=== PATIENT | female | born 1970 | race Caucasian/White ===

== ENCOUNTER 2021-05-02 11:38 | Outpatient (CLI) | payer OTHER, SELFPAY ==
[2021-05-02 12:27] LABS: Anion Gap 5 mmol/L (8-16); Blood Urea Nitrogen 11 mg/dL (7-17); Carbon Dioxide 27 mmol/L (22-30); Chloride 101 mmol/L (98-107); Estimated Glomerular Filt Rate > 60; Glucose 265 mg/dL (65-110); Potassium 4.2 mmol/L (3.4-5.0); Sodium 133 mmol/L (137-145)
== END 2021-05-02 11:39 | disposition home or self-care (01) ==
LOC: ANHLAB 11:40
PROVIDERS: PCP Family Medicine; Visit Provider Anesthesiology
DX: E11.9 Type 2 diabetes mellitus without complications (principal); Z01.818 Encounter for other preprocedural examination
CPT/HCPCS: 36415; 80048

== ENCOUNTER 2021-05-05 02:47 | Day surgery (SDC) | payer OTHER, SELFPAY ==
[2021-04-24 17:48] VITALS: BMI 30.9
--- NOTE | 2021-04-24 17:55 | SUR.PREOP ---
Report to the Outpatient Waiting Room, entrance under the green pavilion located off [facility], at time _1000 on date _05/05/21 . OR Time: _1200 . - You will be asked a series of questions to screen for COVID 19 for your protection. - A mask is required within the hospital. - No visitors are allowed at this time. Preoperative COVID Testing Requirements: No COVID Test needed if: (proof is required; if not received patient will have Rapid Test prior to entry) - Patient has received COVID Vaccine at least 14 days prior to procedure date or - Patient has positive COVID test result within last 90 days of surgery date. COVID Test needed if above criteria is not met If not COVID vaccinated a COVID test must be conducted within 72 hours of surgery and patient is asked to isolate self from time of testing until procedure. You will go to the [facility] for your COVID testing. The [facility] Testing site is located at the corner of [address] [facility]. You will only be called if COVID results are positive and your surgeon may reschedule your elective surgery date. Patients may have clear liquids (water, carbonated beverages, clear teas, apple juice) until 3 hours prior to surgery with a maximum of 20 ounces. - No food from midnight until time of surgery - Infants may have breast milk until 4 hours before surgery, infant formula 6 hours prior to surgery. - Children will be allowed to drink immediately following surgery. If applicable, please bring a bottle or sippy cup to assist with drinking. Juice, water, soda, and popsicles are readily available. For infants on formula, please bring formula the day of surgery. Pacifiers are allowed. Take the following medications with a SIP of water the morning of surgery: ____n/a Medications to discontinue per physician __vitamin Date to take last dose__05/02/21 Please no make-up, nail bengali, hairspray, perfume, deodorant, or body powder the day of surgery. No jewelry (including any body piercings) or valuables the day of surgery, leave them at home. Please take a shower or bath the night before, or the morning of, surgery with an antibacterial soap. Wear comfortable, loose fitting clothing. Children are encouraged to wear pajamas. - Jewelry must be removed prior to entering the operating room. Rings and piercings that are not removed may be cut off. - The hospital will not accept responsibility for valuables. - Please leave all valuables, including medications, at home the day of surgery. If you are going home after surgery, a licensed spike driver must drive you home. - NO public transportation without another adult. - We recommend that an adult stay with you for 24 hours following discharge. - We also recommend that you do not drive, make important decision, drink alcoholic beverages, or take any drugs that were not prescribed by your health care provider for at least 24 hours after your discharge time. For Pediatric surgeries, we recommend two adults accompany the child home (only one inside the building at this time). Follow any additional instructions given to you from your surgeon. Telephone instructions given to __eulogio colón and asked if any additional questions and then verbalized understanding. Patient advised to call surgeon office or pre surgery nurse liaison [phone] if any additional questions.
--- NOTE | 2021-05-05 08:19 | PM.IMHP ---
H&P: HPI History of Present Illness Date/Time: 05/05/21 08:19 She has painful lesion inside vagina she has opted to have removed Chief Complaint: vaginal lesion, dyspareunia Review of Systems Review of Systems: All systems reviewed & are unremarkable except as noted in HPI and below PMFSH Past Medical History Medical History Anxiety Chronic GERD Diabetes mellitus Fibromyalgia IBS (irritable bowel syndrome) Lupus Migraine Vaginal delivery x1 Surgical History Surgical History H/O exploratory laparotomy 07/2009 History of ankle surgery 01/2011 History of bilateral salpingo-oophorectomy 07/2009 History of hysterectomy 07/2009 Family History Family History Father Diabetes mellitus Mother Uterine cancer Anxiety and depression Daughter Anxiety and depression Grandparent Heart disease Thyroid disorder Social History Social History Smoking status: Never smoker Alcohol intake: never Alcohol use details: 1 drink a month Substance use: current Substance use type: marijuana Other substance usage details: once a week,eatables Living arrangements: with family Spiritual care concerns: No Agree to blood products: Yes Meds Home Medications and Allergies Home Medications Medication Instructions Recorded Confirmed Type albuterol 90 mcg/actuation aerosol 90 mcg INHALATION PRN 04/01/21 04/24/21 History inhaler amitriptyline 25 mg tablet 25 mg PO HS tablet 04/01/21 04/24/21 History cholecalciferol (vitamin D3) 50 50 mcg PO DAILY 04/01/21 04/24/21 History mcg (2,000 unit) capsule citalopram 40 mg tablet 40 mg PO HS 04/01/21 04/24/21 History dicyclomine 10 mg capsule 10 mg PO PRN 04/01/21 04/24/21 History diphenoxylate-atropine 2.5 1 tablet PO PRN PRN 04/01/21 04/24/21 History mg-0.025 mg tablet hydrocodone 5 mg-acetaminophen 325 1 tablet PO PRN PRN 04/01/21 04/24/21 History mg tablet hydroxychloroquine 200 mg tablet 200 mg PO BID 04/01/21 04/24/21 History insulin glargine U-300 conc 300 See Rx Instructions .ROUTE 04/01/21 04/24/21 History unit/mL (3 mL) subcutaneous pen .COMPLEX ml insulin lispro 100 unit/mL 1 sliding scale dose SUBCUT .with 04/01/21 04/24/21 History subcutaneous pen meals ml pantoprazole 40 mg tablet,delayed 40 mg PO BID tablet 04/01/21 04/24/21 History release semaglutide 0.25 mg SUBCUT WEEKLY 04/01/21 04/24/21 History tramadol 50 mg tablet 50 mg PO PRN PRN 04/01/21 04/24/21 History Allergies Allergy/AdvReac Type Severity Reaction Status Date / Time codeine Allergy Mild Gastrointestinal Verified 04/24/21 17:19 Upset, pain, nausea Penicillins Allergy Mild Gastrointestinal Verified 04/24/21 17:19 Upset, pain, nausea Exam Const: General: healthy appearing, no acute distress, alert and awake Resp: Auscultation: clear to auscultation bilaterally Cardio: Rate: regular rate Rhythm: regular rhythm GI: Inspection: non-distended GI Palp: Yes Soft to palpation and No Tenderness to palpation present (GI) : Speculum Exam - Vagina: lesion (1 cm smooth pink lesion, tender, friable) Bimanual exam- vagina & uterus: normal bimanual exam Bimanual Exam- Adnexa, other: normal adnexae, no masses and No adnexal tenderness Extrem: General: no pedal edema and no calf tenderness Psych: Mental Status: mental status grossly normal Assessment and Plan Assessment and plan (1) Vaginal lesion: Code(s): N89.8 - Other specified noninflammatory disorders of vagina Status: Acute Assessment and Plan: She opted and signed consent for removal of vaginal lesion after risks, benefits, complications, and alternatives discussed. She expressed understanding and
[2021-05-05 10:19] VITALS: BP 132/80; PULSE 99; RESP 18; TEMP 36.3; O2SAT 99
[2021-05-05] MEDS: LACTATED RINGERS 1,000 ML 30 ML IV CONT (10:40)
[2021-05-05 10:48] LABS: Glucose Point of Care 295 mg/dl (65-105)
--- NOTE | 2021-05-05 11:03 | WPDANESEPPF ---
Anes - Initial Pre Proc Eval Procedure: Operation Date: 05/05/21 12:00 Proposed Procedures p Removal of Vaginal Lesion - Samantha Kirkland MD Date/Time: 05/05/21 11:03 Surgeon: Samantha Kirkland MD Pre Op Diagnosis: Vag Lesion, Dyspareunia Patient Data Age: 51 Gender: F Height: 1.7 m Weight: 91.6 kg Last Vital Signs Temp 97.4 F L 05/05/21 10:19 Pulse 99 05/05/21 10:19 Resp 18 05/05/21 10:19 BP 132/80 05/05/21 10:19 Pulse Ox 99 05/05/21 10:19 Allergies Allergy/AdvReac Type Severity Reaction Status Date / Time codeine Allergy Mild Gastrointestinal Verified 05/05/21 10:23 Upset, pain, nausea Penicillins Allergy Mild Gastrointestinal Verified 05/05/21 10:23 Upset, pain, nausea Home Medications Medication Instructions Recorded Confirmed Type albuterol 90 mcg/actuation aerosol 90 mcg INHALATION PRN 04/01/21 05/05/21 History inhaler amitriptyline 25 mg tablet 25 mg PO HS tablet 04/01/21 05/05/21 History cholecalciferol (vitamin D3) 50 50 mcg PO DAILY 04/01/21 05/05/21 History mcg (2,000 unit) capsule citalopram 40 mg tablet 40 mg PO HS 04/01/21 05/05/21 History dicyclomine 10 mg capsule 10 mg PO PRN 04/01/21 05/05/21 History diphenoxylate-atropine 2.5 1 tablet PO PRN PRN 04/01/21 05/05/21 History mg-0.025 mg tablet hydrocodone 5 mg-acetaminophen 325 1 tablet PO PRN PRN 04/01/21 05/05/21 History mg tablet hydroxychloroquine 200 mg tablet 200 mg PO BID 04/01/21 05/05/21 History insulin glargine U-300 conc 300 See Rx Instructions .ROUTE 04/01/21 05/05/21 History unit/mL (3 mL) subcutaneous pen .COMPLEX ml insulin lispro 100 unit/mL 1 sliding scale dose SUBCUT .with 04/01/21 05/05/21 History subcutaneous pen meals ml pantoprazole 40 mg tablet,delayed 40 mg PO BID tablet 04/01/21 05/05/21 History release semaglutide 0.25 mg SUBCUT WEEKLY 04/01/21 05/05/21 History tramadol 50 mg tablet 50 mg PO PRN PRN 04/01/21 05/05/21 History Laboratory Tests 05/05/21 10:43 POC Capillary Glucose 295 mg/dl H mg/dl (65-105) Patient hx anesthesia problems: none Family hx anesthesia problems: none Results Review: All pre-operative results and documents have been reviewed as part of the pre-operative evaluation. [facility] Past Medical History Medical History Anxiety Chronic GERD Diabetes mellitus Fibromyalgia IBS (irritable bowel syndrome) Lupus Migraine Vaginal delivery x1 Surgical History Surgical History H/O exploratory laparotomy 07/2009 History of ankle surgery 01/2011 History of bilateral salpingo-oophorectomy 07/2009 History of hysterectomy 07/2009 Family History Family History Father Diabetes mellitus Mother Uterine cancer Anxiety and depression Daughter Anxiety and depression Grandparent Heart disease Thyroid disorder Social History Social History Smoking status: Never smoker Alcohol intake: never Alcohol use details: 1 drink a month Substance use: current Substance use type: marijuana Other substance usage details: once a week,eatables Living arrangements: with family Spiritual care concerns: No Agree to blood products: Yes Anes - Eval Final PreProcedure Day of Procedure 05/05/21 11:03 Patient weight: obese Heart: regular rate and rhythm Lungs: clear to auscultation Airway: Mallampati scale class II Neurological: alert and oriented Last oral intake: >/= 8 hours ASA classification: III Emergent: no Anesthetic plan: proceed Anesthesia type and monitoring: general GIVS and standard monitoring Results Review: All pre-operative results and documents have been reviewed as part of the pre-operative evaluation. Informed Consent: T
--- NOTE | 2021-05-05 11:47 | WPDHPUPDATE1 ---
History and Physical Update Update Date/Time: 05/05/21 11:47 History and Physical has been reviewed, including an updated exam of the patient. There are NO changes in the patient's condition. Risks, benefits, and alternatives have been discussed and questions answered. Patient agrees to proceed with procedure.
--- NOTE | 2021-05-05 12:29 | SUR.OPER ---
no lesion visualized, no local injected
[2021-05-05 12:32] VITALS: BP 113/69; PULSE 85; RESP 16; O2SAT 98
--- NOTE | 2021-05-05 12:33 | W.PM.PROC2 ---
Procedure Note - Detailed Date of Procedure 05/05/21 Pre-op Diagnosis Vag Lesion, Dyspareunia Post-op Diagnosis other (Dyspareunia) Procedure Performed exam under anesthesia Surgeon Samantha Kirkland MD Anesthesia MAC Indications Vaginal lesion seen on exam in office, dyspareunia Findings normal vagina with no lesion visible or palpable Description of Procedure The patient was taken to the operating room where she was sedated and placed in the dorsal lithotomy position. A speculum was placed in the patient's vagina. No lesion was visible on any part of the vagina or cervix. She does have remnants of the hymenal ring visible, which is a normal finding. The lesion that was visible and palpable in the office was not visualized or palpated today. After a very thorough vaginal inspection and digital exam and no lesion found, decision was made not to proceed with any further surgery since no lesion was seen to be removed. She tolerated the procedure well. Sponge, lap, and instrument counts were correct x2. She was taken to the recovery room in stable condition. Estimated Blood Loss 0 Drains No Packing No Pathology none sent Complications No immediate complications Condition stable Disposition PACU
[2021-05-05 12:59] LABS: Glucose Point of Care 221 mg/dl (65-105)
[2021-05-05 13:00] VITALS: BP 105/78; PULSE 85; RESP 16
[2021-05-05 13:20] VITALS: BP 118/74; PULSE 84; RESP 16
== END 2021-05-05 13:38 | disposition home or self-care (01) ==
PROVIDERS: PCP Family Medicine; Visit Provider Obstetrics & Gynecology
PROC: 0UBC7ZZ Excision of Cervix, Via Natural or Artificial Opening (ICD-10-PCS; CPT 57522; principal; 2021-05-05 12:00)
DX: N89.8 Other specified noninflammatory disorders of vagina (principal); N94.10 Unspecified dyspareunia; Z79.4 Long term (current) use of insulin; Z79.51 Long term (current) use of inhaled steroids; F41.9 Anxiety disorder, unspecified; K21.9 Gastro-esophageal reflux disease without esophagitis; E11.9 Type 2 diabetes mellitus without complications; M79.7 Fibromyalgia; K58.9 Irritable bowel syndrome, unspecified; M32.9 Systemic lupus erythematosus, unspecified; F12.90 Cannabis use, unspecified, uncomplicated; E66.9 Obesity, unspecified; Z68.31 Body mass index [BMI] 31.0-31.9, adult
CPT/HCPCS: 57410; 36415; 80048; 82948; A9270; J2250; J2405; J2704; J3010; J7120